=== PATIENT | male | born 1965 | race Caucasian/White ===

== ENCOUNTER 2017-12-25 11:29 | Emergency (ER) | payer MEDICAID ==
[~2017-12-25] VITALS: Ht 177.8 cm; Wt 111.6 kg
--- NOTE | 2017-12-25 11:33 | NUR ---
Arrived as a walk in with compliant of sharp left chest pain which increases with movement of the left shoulder. Placed in room 6 . Placed on phototypesetting equipment monitor, blood pressure machine and pulse oximeter. To gown for exam. Side rails up.
--- NOTE | 2017-12-25 11:35 | NUR ---
Pt presents to ED R sided Chest wall pain x 2 days. Pt has reproducible pain nonradiating. Pt denies strenous activity. Pt h/o HTN.
[2017-12-25 11:37] VITALS: BP_SYST 135
[2017-12-25] MEDS ORDERED: KETOROLAC TROMETHAMINE 60 MG/2 ML VIAL IM ONE (12:15)
--- NOTE | 2017-12-25 12:15 | NUR ---
ER at bedside examining patient.
--- NOTE | 2017-12-25 12:30 | NUR ---
Pt tolerated medicated well. Pain resolving.
[2017-12-25 13:05] VITALS: BP_SYST 135
--- NOTE | 2017-12-25 13:05 | NUR ---
Patient given written and verbal discharge instructions and verbalizes understanding. ER MD discussed with patient the results and treatment provided. Patient in stable condition. ID arm band removed. Rx of naproxen,tramadol given. Patient educated on pain management and to follow up with PMD. Pain Scale 2. Opportunity for questions provided and answered. Medication side effect fact sheet provided.
== END 2017-12-25 13:05 | disposition home or self-care (01) ==
LOC: SED 11:29
DX: R07.89 Other chest pain (principal); I10 Essential (primary) hypertension
CPT/HCPCS: 71045; 93005; 96372; 99284; J1885